=== PATIENT | female | born 1940 | race Caucasian/White ===

== ENCOUNTER → 2017-06-22 | Outpatient (CLI) | payer MEDICARE, OTHER | END | disposition home or self-care (01) | LOC: GMAH 15:02 | PROVIDERS: ATTEND Family Medicine | DX: E78.2 Mixed hyperlipidemia (principal); I10 Essential (primary) hypertension ==

== ENCOUNTER → 2017-06-30 | Outpatient (CLI) | payer MEDICARE, OTHER ==
--- NOTE | 2017-07-01 09:18 | MAM ---
EXAM DESCRIPTION: 3D Screening BILATERAL CLINICAL HISTORY: 76 yearsFemaleSCREENING bilateral silicone breast implants. No complaints. No family history of breast cancer. Hysterectomy at age 36. Currently on HRT COMPARISON: 2-D digital screening bilateral study with implants 05/05/2016. Report from prior examination reviewed. TECHNIQUE: Bilateral digital screening. CC and MLO projection full-field, 2-D images. Bilateral Ilsa implant displacement images, CC and MLO full-field projections, 3-D tomosynthesis. FINDINGS: The breast parenchymal density pattern is: Heterogeneously dense breast tissue, which may obscure small masses. No skin thickening or nipple retraction bilaterally. Partial implant capsule calcification bilaterally. Dense axillary lymph nodes bilaterally probably contain silicone. The implants are subglandular. Solitary microcalcifications bilaterally. No focal, stellate mass or density no focal asymmetry, and no suspicious microcalcifications bilaterally. Stable mammograms compared to the prior study, taking into account differences in mammographic technique. IMPRESSION: BI-RADS CATEGORY: 2 - BENIGN FINDINGS. FOLLOW UP: Routine digital bilateral screening, one year interval from June 2017. Written communication explaining the IMPRESSION and follow-up, will be mailed to the patient and referring health care provider. According to the [employer], yearly mammograms are recommended starting at age 40 and continuing as long as a woman is in good health. Any breast change noted on a breast self-exam should be reported promptly to the patient's healthcare provider. Breast MRI is recommended for women with an approximately 20-25% or greater lifetime risk of breast cancer, including women with a strong family history of breast or ovarian cancer and women who have been treated for Hodgkin's disease. A negative mammographic report should not delay tissue diagnosis in patients with significant clinical history or physical findings. Extremely dense breast tissue limits the sensitivity of digital mammography. Electronically signed by: Noam Mayer MD 07/01/2017 9:17 AM CDT
== END | disposition home or self-care (01) ==
LOC: MAMMO 14:29
PROVIDERS: ATTEND Family Medicine
DX: Z12.31 Encounter for screening mammogram for malignant neoplasm of breast (principal)
CPT/HCPCS: 77063; G0202

== ENCOUNTER → 2018-06-28 | Outpatient (CLI) | payer MEDICARE, OTHER | LOC: GMAH 10:54 | PROVIDERS: ATTEND Family Medicine | DX: R53.1 Weakness (principal); M15.0 Primary generalized (osteo)arthritis ==

== ENCOUNTER → 2018-07-10 | Outpatient (CLI) | payer MEDICARE, OTHER ==
--- NOTE | 2018-07-11 09:37 | MAM ---
EXAM DESCRIPTION: 3D Screening BILATERAL : Digital Mammography. CLINICAL HISTORY: 77 years Female SCREENING . No complaints. No personal history or family history of breast cancer. Childbirth. Hysterectomy. Currently on HRT. Bilateral breast augmentation. Lifetime risk of developing breast cancer (Tyrer-Cuzick model)(%): 3 COMPARISON: 2-D digital screening bilateral study with implant displacement images 06/30/2017.. No prior reports available. TECHNIQUE: Bilateral CC and MLO projection full-field images, with Ilsa Implant Displacement Digital tomosynthesis mammographic technique. Bilateral digital 2-D full-field MLO images. CAD not utilized. Bilateral 2-D digital full-field images, MLO and CC projections, non-displaced, with CAD. FINDINGS: The breast parenchymal density pattern is: Heterogeneously dense breast tissue, which may obscure small masses. No skin thickening or nipple retraction. Small microcalcifications bilaterally. Bilateral vascular calcifications. Bilateral axillary lymph nodes are no longer present. Partial calcification of the bilateral silicon breast implant capsules. They are retroglandular in position. Stable since the prior study. No new focal, stellate mass or density, focal asymmetry , and no suspicious microcalcifications bilaterally. Stable mammograms compared to prior study. IMPRESSION: Benign exam. BIRAD CATEGORY: 2 BENIGN FINDINGS. RECOMMENDATIONS: FOLLOW UP: Routine digital bilateral screening, one year interval from July 2018. Written communication explaining the IMPRESSION and follow-up, will be mailed to the patient and referring health care provider. According to the [employer], yearly mammograms are recommended starting at age 40 and continuing as long as a woman is in good health. Any breast change noted on a breast self-exam should be reported promptly to the patient's healthcare provider. Breast MRI is recommended for women with an approximately 20-25% or greater lifetime risk of breast cancer, including women with a strong family history of breast or ovarian cancer and women who have been treated for Hodgkin's disease. A negative mammographic report should not delay tissue diagnosis in patients with significant clinical history or physical findings. Extremely dense breast tissue limits the sensitivity of digital mammography. Electronically signed by: Noam Mayer MD 07/11/2018 9:35 AM CDT
== END ==
LOC: MAMMO 13:04
PROVIDERS: ATTEND Family Medicine
DX: Z12.31 Encounter for screening mammogram for malignant neoplasm of breast (principal)

== ENCOUNTER → 2018-07-24 | Outpatient (CLI) | payer MEDICARE, OTHER ==
--- NOTE | 2018-07-24 17:05 | US ---
EXAM DESCRIPTION: Carotid Duplex CLINICAL HISTORY: CAROTID ARTERY STENOSIS COMPARISON: Previous carotid Doppler sonogram February 28, 2012 TECHNIQUE: Carotid Doppler ultrasound FINDINGS: Right Submitted images show tortuosity of the right CCA with calcified plaque at the right carotid bulb. Findings have progressed somewhat since the previous study. Transverse image shows area stenosis of the right mid bulb 42%. Surface appears irregular. The following flow velocities were obtained: Common carotid artery peak systolic flow velocity measures 118 centimeters per second. Internal carotid artery peak systolic flow velocity measures 97 centimeters per second. External carotid artery peak systolic flow velocity measures 82 centimeters per second. Flow in the right vertebral artery is antegrade. The right internal carotid to common carotid peak systolic flow velocity ratio equals 0.8 which is normal. Left Submitted images show arteriosclerotic plaque relatively mild at the left carotid bifurcation with calcification. Compared to previous study, this appears stable. Axial images show 15% area stenosis of the mid left carotid bulb. The following flow velocities were obtained: Common carotid artery peak systolic flow velocity measures 112 centimeters per second. Internal carotid artery peak systolic flow velocity measures 85 centimeters per second. External carotid artery peak systolic flow velocity measures 101 centimeters per second. Flow in the left vertebral artery is antegrade. The left internal carotid to common carotid peak systolic flow velocity ratio of 0.8 is normal. IMPRESSION: Arteriosclerotic plaque in the right carotid bulb appears to progressed since previous study February 28, 2012. No significantly elevated flow velocity to suggest hemodynamically significant stenosis. Electronically signed by: Jae Avalos MD 07/24/2018 5:04 PM CDT
== END ==
LOC: US 13:37
PROVIDERS: ATTEND Family Medicine
DX: I65.23 Occlusion and stenosis of bilateral carotid arteries (principal)

== ENCOUNTER → 2019-04-04 | Outpatient (CLI) | payer MEDICARE, OTHER | LOC: GMAH 17:08 | PROVIDERS: ATTEND Family Medicine | DX: M25.50 Pain in unspecified joint (principal) ==

== ENCOUNTER → 2019-07-02 | Outpatient (CLI) | payer MEDICARE, OTHER | LOC: SL 19:24 | PROVIDERS: ATTEND Family Medicine | DX: G47.10 Hypersomnia, unspecified (principal); I10 Essential (primary) hypertension ==

== ENCOUNTER → 2019-07-06 | Outpatient (CLI) | payer MEDICARE, OTHER | LOC: GMA MATASK 10:43 | PROVIDERS: ATTEND Family Medicine | DX: I10 Essential (primary) hypertension (principal) ==

== ENCOUNTER → 2019-07-11 | Outpatient (CLI) | payer MEDICARE, OTHER ==
--- NOTE | 2019-07-17 10:34 | MAM ---
EXAM DESCRIPTION: 3D Screening BILATERAL : Digital Mammography. CLINICAL HISTORY: 78 years Female SCREEN . Left breast decreasing in size because of implant? Soreness under right arm. No personal or family history of breast cancer. Bilateral breast augmentation. Menarche age 15. Childbirth. Postmenopausal. HRT 5 or more years ago. Benign left breast biopsy.. Lifetime risk of developing breast cancer (Tyrer-Cuzick model)(%): Not calculated COMPARISON: Bilateral screening digital breast tomosynthesis 06/30/2017. TECHNIQUE: Bilateral CC and MLO projection full-field images, with Ilsa Implant Displacement digital tomosynthesis mammographic technique. Bilateral 2-D digital full-field images, MLO and CC projections, non-displaced. Bilateral digital 2-D full-field MLO images. With implant displaced. CAD not available for tomosynthesis or 2-D images. FINDINGS: The breast parenchymal density pattern is: Scattered areas of fibroglandular density. No skin thickening or nipple retraction. Bilateral axillary lymph nodes. Bilateral moles indicated by skin markers. Bilateral retroglandular silicone based implants with partially calcified capsules. No significant change from the prior study. No significant change in left breast size since the prior study. No new focal, stellate mass or density, focal asymmetry , and no suspicious microcalcifications bilaterally. Stable mammograms compared to prior study. IMPRESSION: Benign exam. BIRAD CATEGORY: 2 BENIGN FINDINGS. RECOMMENDATIONS: FOLLOW UP: Routine digital bilateral mammographic screening, one year interval from July 2019. Written communication explaining the IMPRESSION and follow-up, will be mailed to the patient and referring health care provider. According to the [employer], yearly mammograms are recommended starting at age 40 and continuing as long as a woman is in good health. Any breast change noted on a breast self-exam should be reported promptly to the patient's healthcare provider. Breast MRI is recommended for women with an approximately 20-25% or greater lifetime risk of breast cancer, including women with a strong family history of breast or ovarian cancer and women who have been treated for Hodgkin's disease. A negative mammographic report should not delay tissue diagnosis in patients with significant clinical history or physical findings. Extremely dense breast tissue limits the sensitivity of digital mammography. Electronically signed by: Noam Mayer MD 07/17/2019 10:32 AM CDT
== END ==
LOC: MAMMO 11:28
PROVIDERS: ATTEND Family Medicine
DX: Z12.31 Encounter for screening mammogram for malignant neoplasm of breast (principal); Z98.82 Breast implant status

== ENCOUNTER → 2019-09-20 | Outpatient (CLI) | payer MEDICARE, OTHER | LOC: SL 20:20 | PROVIDERS: ATTEND Family Medicine | DX: G47.10 Hypersomnia, unspecified (principal); I10 Essential (primary) hypertension ==

== ENCOUNTER → 2020-07-15 | Outpatient (CLI) | payer MEDICARE, OTHER ==
--- NOTE | 2020-07-17 18:01 | MAM ---
EXAM DESCRIPTION: 3D Screening BILATERAL : Digital Mammography. CLINICAL HISTORY: 79 years Female ANNUAL SCREENING . No complaints. No family history breast cancer. Menarche age 15. Childbirth age 19. Menopause age 35. Prior benign cyst aspiration left breast. Currently on HRT. Lifetime risk of developing breast cancer (Tyrer-Cuzick model)(%): 2.0. COMPARISON: Bilateral screening digital breast tomosynthesis July 2019 and July 2018. TECHNIQUE: Bilateral CC projection full-field images, with Ilsa Implant Displacement digital tomosynthesis mammographic technique. Bilateral 2-D digital full-field images, MLO and CC projections, non-displaced. Bilateral digital 2-D full-field MLO images. Implant displaced. CAD available for 2-D images. Technically difficult study due to lack of [place] right breast tissue on bilateral MLO tomosynthesis resulting in no images obtained. FINDINGS: The breast parenchymal density pattern is: Heterogeneously dense breast tissue, which may obscure small masses. No nipple retraction or skin thickening left breast. Bilateral retroglandular silicone implants with lobulated calcified margins. Minimal outpouchings of implant material bilaterally. Solitary microcalcifications.. No new focal, stellate mass or density, focal asymmetry , and no suspicious microcalcifications bilaterally. IMPRESSION: BI-RADS CATEGORY: 0 - INCOMPLETE- Need additional imaging evaluation. RECOMMENDATIONS: FOLLOW-UP: Recall for additional imaging: Bilateral directed breast ultrasound.. Written communication concerning the IMPRESSION and Follow-up, will be mailed to the patient and referring health care provider. Electronically signed by: Noam Mayer MD 07/17/2020 6:00 PM CDT
--- NOTE | 2020-08-05 16:20 | US ---
EXAM DESCRIPTION: Breast,Bilateral: Ultrasound CLINICAL HISTORY: 79 yearsFemaleABNORMAL MAMMO bilateral screening digital breast tomosynthesis July 15 with limited visualization due to bilateral breast implants. No visualization of right breast tissue on MLO images. COMPARISON: Bilateral screening digital breast tomosynthesis with Ilsa implant displacement technique July 2020. TECHNIQUE: Transcutaneous scanning of the bilateral breasts utilizing boyce-scale and Doppler modes. Scanning performed by the dope maintenance worker ; observation by Dr. Mayer. FINDINGS: Ultrasound: Scanning retroareolar and periareolar bilateral breasts. Also scanning 3:00 sector right breast. Implant margins is calcified. Mostly fibroglandular tissues with minimal fatty tissue anteriorly. No dominant solid mass, no distinct cyst, no fluid collection, no large calcifications. IMPRESSION: Benign exam. BIRAD CATEGORY: 2 BENIGN FINDINGS. RECOMMENDATIONS: FOLLOW UP: Routine digital bilateral mammographic screening, with Ilsa implant displacement view, one year interval from July 2020. Written communication explaining the IMPRESSION and follow-up, will be mailed to the patient and referring health care provider. The FINDINGS and the FOLLOW-UP plan were reviewed in person with the patient after the examination. According to the [employer], yearly mammograms are recommended starting at age 40 and continuing as long as a woman is in good health. Any breast change noted on a breast self-exam should be reported promptly to the patient's healthcare provider. Breast MRI is recommended for women with an approximately 20-25% or greater lifetime risk of breast cancer, including women with a strong family history of breast or ovarian cancer and women who have been treated for Hodgkin's disease. A negative mammographic report should not delay tissue diagnosis in patients with significant clinical history or physical findings. Extremely dense breast tissue limits the sensitivity of digital mammography. Electronically signed by: Noam Mayer MD 08/05/2020 4:18 PM CDT
== END ==
LOC: MAMMO 14:00
PROVIDERS: ATTEND Family Medicine
DX: Z12.31 Encounter for screening mammogram for malignant neoplasm of breast (principal); Z98.82 Breast implant status

== ENCOUNTER → 2020-08-04 | Outpatient (CLI) | payer MEDICARE, OTHER | LOC: GMA MATASK 10:41 | PROVIDERS: ATTEND Family Medicine | DX: I10 Essential (primary) hypertension (principal); E78.2 Mixed hyperlipidemia ==

== ENCOUNTER → 2020-08-22 | Outpatient (CLI) | payer MEDICARE, OTHER ==
--- NOTE | 2020-08-22 13:32 | US ---
US HEAD NECK SOFT TISSUE CLINICAL STATEMENT:80 years Female R22.9. COMPARISON: None TECHNIQUE: Transcutaneous scanning, grayscale and Doppler modes. FINDINGS: Size right thyroid lobe: 4.1 x 1.5 x 1.4 cm Size left thyroid lobe: 3.3 x 0.8 x 1.2 cm Size isthmus: 0.3 cm Estimated total number of nodules greater than or equal to 1 cm: 2. Nodule 1: Size: 1.2 x 1.3 x 1.0 cm Location: Right Mid Composition: mixed cystic and solid: 1 point Echogenicity: anechoic: 0 points Shape: wider than tall: 0 points Margins: smooth: 0 points Echogenic foci: none: 0 points ACR Total Points: 1; ACR TI-RADS risk category: TR1 - not suspicious nodule Nodule 2: Size: 1.0 x 0.7 x 0.5 cm Location: Left Mid Composition: spongiform: 0 points Echogenicity: hypoechoic: 2 points Shape: wider than tall: 0 points Margins: smooth: 0 points Echogenic foci: none: 0 points ACR Total Points: 2; ACR TI-RADS risk category: TR2 - nonsuspicious nodule. Soft tissue around the thyroid gland with no dominant solid mass, no distinct cyst, no fluid collection, no large calcifications. IMPRESSION: 1. Nodule 1: ACR TI-RADS 2017 Category TR1. Recommend: No further follow-up.. Recommendations based upon [employer] Best [employer] recommendations and ACR TI-RADS 2017 guidelines. Please see below*. 2. Nodule 2: ACR TI-RADS 2017 Category TR2. Recommend: No further follow-up. 3. Soft tissue around the thyroid gland is unremarkable. *ACR TI-RADS 2017 Recommendations for imaging follow-up of nodules (baseline study): TR1: No FNA or follow up TR2: No FNA or follow up TR3: FNA if >/= 2.5 cm, follow up if 1.5 - 2.4 cm in 1, 3, and 5 years TR4: FNA if >/= 1.5 cm, follow up if 1.0 - 1.4 cm in 1, 2, 3, and 5 years TR5: FNA if >/= 1.0 cm, follow up if 0.5 - 0.9 cm every year for 5 years ACR TI-RADS recommends that no more than two nodules with the highest ACR TI-RADS total point should be biopsied and no more than four nodules should be followed. These recommendations do not apply to patients with increased risk for thyroid cancer or patients with symptomatic thyroid disease. Electronically signed by: Noam Mayer MD 08/22/2020 1:30 PM [facility]
--- NOTE | 2020-08-24 16:05 | US ---
EXAM DESCRIPTION: Soft Tissue,Extremity: ULTRASOUND. CLINICAL HISTORY: 80 years Female RT AXILLARY LUMP abutting the right breast implant. Diagnostic breast tomosynthesis and ultrasound negative bilaterally: BI-RADS 2, July 2020. COMPARISON: None Available. TECHNIQUE: Transcutaneous scanning: Perry-scale and Doppler modes. FINDINGS: Scanning of right axilla abutting breast implant. Margin of the breast implant appears intact. Mixture of fatty and fibroglandular tissues. No dominant solid mass, no distinct cysts, no fluid collection and no large calcifications. IMPRESSION: No sonographic abnormalities of right axilla in the region of interest. Electronically signed by: Noam Mayer MD 08/24/2020 4:03 PM [facility]
== END ==
LOC: US 13:31
PROVIDERS: ATTEND Family Medicine
DX: E04.1 Nontoxic single thyroid nodule (principal); R22.9 Localized swelling, mass and lump, unspecified; M85.80 Other specified disorders of bone density and structure, unspecified site